=== PATIENT | male | born 1970 | race Caucasian/White ===

== ENCOUNTER 2017-03-14 13:05 | Emergency (ER) | payer OTHER ==
[~2017-03-14] VITALS: Ht 182.9 cm; Wt 102.0 kg
[~2017-03-14 13:05] MED LIST: BUPR-86 PO; CEPH-368 PO; CHOL40002 PO; DIAZ5TAB4 PO; FLUO20TA25 PO; HYDR2TAB40 PO; LORA10TA3 PO; MELA1TAB22 PO; METH36TA PO; METH750T2 PO; ONDA4TAB7 PO; OXYC1TAB9 PO
[2017-03-14] MEDS ORDERED: FAMOTIDINE 20 MG/2 ML IVPush ONE (13:30)
[2017-03-14] MEDS ORDERED: SODIUM CHLORIDE FLUSH 10ML SYR IVF ONE (13:30)
[2017-03-14] MEDS ORDERED: methylPREDNISolone SOD SUCC 125 MG/2 ML IVPush ONE (13:30)
[2017-03-14] MEDS ORDERED: SODIUM CHLORIDE 0.9% 1,000ML IVBOLUS ONE (13:30)
[2017-03-14] MEDS ORDERED: FAMOTIDINE 20 MG/2 ML ONE (13:41)
[2017-03-14] MEDS ORDERED: methylPREDNISolone SOD SUCC 125 MG/2 ML ONE (13:41)
[2017-03-14 15:52] VITALS: BP 129/79
== END 2017-03-14 15:55 | disposition home or self-care (01) ==
LOC: ED 15:42
DX: T88.6XXA Anaphylactic reaction due to adverse effect of correct drug or medicament properly administered, initial encounter (principal); Y92.9 Unspecified place or not applicable
CPT/HCPCS: 93005; 96361; 96374; 96375; 99285; J2930; J7030; S0028